=== PATIENT | female | born 1975 | race Caucasian/White ===

== ENCOUNTER → 2022-02-20 10:38 | Outpatient (BNVA) | payer SELFPAY | PROVIDERS: Family Provider Nurse Practitioner; PCP Nurse Practitioner; Visit Provider Nurse Practitioner Family | DX: R06.09 Other forms of dyspnea (principal) | CPT/HCPCS: 80053; 83540; 85025 ==

== ENCOUNTER 2022-04-24 17:52 | Emergency (ER) | payer BC, MEDICAID, SELFPAY ==
[2022-04-24 18:16] VITALS: BP 156/79; PULSE 98; RESP 28; TEMP 37.1; O2SAT 98
--- NOTE | 2022-04-24 18:24 | ECG_ITS ---
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 Measurements Intervals [place] Rate: 62 P: 40 DE: 148 QRS: -32 QRSD: 98 T: 23 QT: 434 QTc: 442 Interpretive Statements SINUS RHYTHM LEFT AXIS DEVIATION [QRS AXIS < -30] PATTERN CONSISTENT WITH PULMONARY DISEASE LEFT VENTRICULAR HYPERTROPHY AND ST-T CHANGE [VOLTAGE CRITERIA PLUS ST/T ABNORMALITY] No previous ECG available for comparison Electronically Signed On 04-25-2022 14:40:25 COATER HELPER by Austin Dixon M.D. [id number]
== END 2022-04-24 19:25 | disposition left against medical advice (07) ==
PROVIDERS: Emergency Provider Family Medicine; PCP Nurse Practitioner
DX: Z53.21 Procedure and treatment not carried out due to patient leaving prior to being seen by health care provider (principal)
CPT/HCPCS: 93005

== ENCOUNTER → 2022-05-14 13:06 | Outpatient (BNVA) | payer BC, MEDICAID, SELFPAY | PROVIDERS: PCP Nurse Practitioner; Visit Provider Nurse Practitioner | DX: I10 Essential (primary) hypertension (principal); R06.02 Shortness of breath; R60.9 Edema, unspecified | CPT/HCPCS: 71046; 80053; 80061; 83880; 84443; 85025 ==

== ENCOUNTER → 2022-05-15 10:31 | Outpatient (BNVA) | payer BC, MEDICAID, SELFPAY | PROVIDERS: PCP Nurse Practitioner; Visit Provider Nurse Practitioner | DX: R73.9 Hyperglycemia, unspecified (principal) | CPT/HCPCS: 83036 ==

== ENCOUNTER → 2022-08-15 11:08 | Outpatient (BNVA) | payer BC, MEDICAID, SELFPAY | PROVIDERS: PCP Nurse Practitioner; Visit Provider Nurse Practitioner | DX: E11.22 Type 2 diabetes mellitus with diabetic chronic kidney disease (principal); N18.2 Chronic kidney disease, stage 2 (mild); E55.9 Vitamin D deficiency, unspecified | CPT/HCPCS: 80053; 82306; 83036; 85025 ==

== ENCOUNTER → 2022-12-18 14:40 | Outpatient (BNVA) | payer BC, MEDICAID, SELFPAY | PROVIDERS: PCP Nurse Practitioner; Visit Provider Nurse Practitioner | DX: E11.22 Type 2 diabetes mellitus with diabetic chronic kidney disease (principal); N18.2 Chronic kidney disease, stage 2 (mild); E55.9 Vitamin D deficiency, unspecified | CPT/HCPCS: 80053; 80061; 82607; 83036 ==

== ENCOUNTER 2023-03-18 09:36 | Outpatient (CLI) | payer BC, MEDICAID, SELFPAY ==
--- NOTE | 2023-03-18 09:45 | USCV_ITS ---
Melanie Gruber Age: 47 Gender: F : 1975 Exam Date: 03/18/2023 09:49 Ordering Phys: Melina Norris Technologist: Cynthia Orr Exam Location: [facility] Indication: SHORTNESS OF BREATH FOR 1 YEAR BP: / HR: 63 Rhythm: Sinus Technical Quality: Adequate MEASUREMENTS (Male / Female) Normal Values 2D ECHO LV Diastolic Diameter PLAX 4.9 cm 4.2 - 5.9 / 3.9 - 5.3 cm LV Systolic Diameter PLAX 3.7 cm LV Chamber Size 2.4 cm IVS Diastolic Thickness 0.7 cm 0.6 - 1.0 / 0.6 - 0.9 cm IVS Systolic Thickness 1.2 cm LVPW Diastolic Thickness 1.2 cm 0.6 - 1.0 / 0.6 - 0.9 cm LVPW Systolic Thickness 1.4 cm RV Chamber Size 2.8 cm LVOT Diameter 2.0 cm LV Ejection Fraction 2D Teich 47.0 % LV Ejection Fraction MOD 2C 54.0 % LV Ejection Fraction 2C AL 52.8 % LA Diameter 4.1 cm LA Width 2.8 cm LA Height 4.0 cm RA Width 3.3 cm RA Height 2.3 cm Aorta at Sinotubular Diameter 3.2 cm IVC Diameter 1.4 cm M-MODE Aortic Annulus Diameter 2.9 cm LA Ao Ratio MM 1.8 MV E Point Septal Separation 0.4 cm DOPPLER AV Peak Velocity 192.7 cm/s LVOT Peak Velocity 135.0 cm/s AV Area Cont Eq vti 2.0 cm squared AV Area Cont Eq pk 2.2 cm squared MV Area PHT 2.7 cm squared Mitral E to A Ratio 1.3 MV E' Velocity 59.0 cm/s Mitral E to MV E' Ratio 7.6 Mitral E to LV E' Lateral Ratio 6.7 Mitral E to LV E' Septal Ratio 8.9 TR Peak Velocity 178.5 cm/s TR Peak Gradient 12.7 mmHg TR Mean Velocity 125.9 cm/s TR Mean Gradient 6.9 mmHg TR Velocity Time Integral 46.3 cm TV Peak E Velocity 63.0 cm/s Right Atrial Pressure 3.0 mmHg Pulmonary Artery Systolic Pressu 15.7 mmHg RV Acceleration Time 0.4 s RV Ejection Time 0.1 s RV AcT/ET 2.5 FINDINGS Left Ventricle Normal left ventricular size, systolic function and wall thickness, with no regional wall motion abnormalities. Left ventricular ejection fraction is estimated at 70%. Normal diastolic function. Right Ventricle Normal right ventricular size and systolic function. Right ventricular systolic pressure 15.7 mmHg. Right Atrium Normal right atrial size. Left Atrium Normal left atrial size. Mitral Valve Structurally normal mitral valve. No mitral valve stenosis. No mitral valve regurgitation. Aortic Valve Structurally normal trileaflet aortic valve. No aortic valve stenosis. Trace to mild aortic valve regurgitation. Tricuspid Valve Structurally normal tricuspid valve. No tricuspid valve stenosis. Trace tricuspid valve regurgitation. Pulmonic Valve Structurally normal pulmonic valve. No pulmonary valve stenosis. No significant pulmonary valve regurgitation. Pericardium No pericardial effusion. Aorta Normal size aortic root and proximal ascending aorta. IVC Normal IVC dimension with >50% respiratory change of the inferior vena cava. CONCLUSIONS 1. Normal left ventricular size, systolic function and wall thickness, with no regional wall motion abnormalities. Left ventricular ejection fraction is estimated at 70%. Normal diastolic function. 2. Normal pulmonary artery pressure. 3. Trace to mild aortic valve regurgitation. 4. No prior similar studies to compare. Francesca Hollis MD (Electronically Signed) Final Date: 23 March 2023 07:03 S
== END 2023-03-18 09:37 | disposition home or self-care (01) ==
LOC: RAD 09:37
PROVIDERS: PCP Nurse Practitioner; Visit Provider Nurse Practitioner
DX: I10 Essential (primary) hypertension (principal); R06.02 Shortness of breath
CPT/HCPCS: 93306

== ENCOUNTER → 2023-03-26 16:53 | Outpatient (BNVA) | payer BC, MEDICAID, SELFPAY | PROVIDERS: PCP Nurse Practitioner; Referring Provider Nurse Practitioner; Visit Provider Internal Medicine Pulmonary Disease | DX: F41.9 Anxiety disorder, unspecified (principal); F32.A Depression, unspecified; R06.02 Shortness of breath; M25.641 Stiffness of right hand, not elsewhere classified; M25.642 Stiffness of left hand, not elsewhere classified | CPT/HCPCS: 36415; 82785; 85025; 85651; 86003; 86140 ==

== ENCOUNTER → 2023-09-02 08:18 | Outpatient (BNVA) | payer BC, MEDICAID, SELFPAY | PROVIDERS: PCP Nurse Practitioner; Visit Provider Nurse Practitioner | DX: I10 Essential (primary) hypertension (principal); E11.22 Type 2 diabetes mellitus with diabetic chronic kidney disease; N18.2 Chronic kidney disease, stage 2 (mild); F41.9 Anxiety disorder, unspecified; F32.A Depression, unspecified; N94.6 Dysmenorrhea, unspecified; I82.401 Acute embolism and thrombosis of unspecified deep veins of right lower extremity | CPT/HCPCS: 80053; 83036; 84443; 85025 ==

== ENCOUNTER 2023-12-11 07:45 | Outpatient (CLI) | payer BC, MEDICAID, SELFPAY ==
--- NOTE | 2023-12-11 07:45 | US_ITS ---
WS: [id number] US pelv w/transvag [id number] HISTORY: N94.6 - Dysmenorrhea, unspecified COMPARISON: None available. Uterus: 11.0 cm x 5.2 cm x 4.3 cm. Enlarged anteverted uterus. There is a significantly limited evaluation of the uterus due to body hab itus. Uterus is really only visualized transabdominally. Endometrium: 1.1 cm. Incomplete evaluation of the endometrium. The endometrium is inadequately visual ized to exclude abnormality. Right ovary: 4.6 cm x 4.7 cm x 3.6 cm. Normal size and vascularity, no cystic or solid masses. Left ovary: 3.1 cm x 2.7 cm x 2.4 cm. Normal size and vascularity, no cystic or solid masses. No free fluid in the cul-de-sac. US/US pelv w/transvag [id number] IMPRESSION: 1. Nondiagnostic evaluation of the uterus and endometrium. This is due to body habitus and position of the uterus. 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 Consider follow-up MRI PARAGLIDING INSTRUCTOR pelvis wi th and without contrast. 2. Neither ovary is enlarged. No free fluid.
== END 2023-12-11 07:48 | disposition home or self-care (01) ==
PROVIDERS: PCP Nurse Practitioner; Visit Provider Nurse Practitioner
DX: N94.6 Dysmenorrhea, unspecified (principal); N85.2 Hypertrophy of uterus
CPT/HCPCS: 76830; 76856

== ENCOUNTER → 2024-03-22 10:40 | Outpatient (BNVA) | payer BC, MEDICAID, SELFPAY | PROVIDERS: PCP Nurse Practitioner; Visit Provider Nurse Practitioner | DX: E11.22 Type 2 diabetes mellitus with diabetic chronic kidney disease; N18.2 Chronic kidney disease, stage 2 (mild); E11.9 Type 2 diabetes mellitus without complications | CPT/HCPCS: 80053; 83036; 85025 ==

== ENCOUNTER → 2024-06-14 13:18 | Outpatient (BNVA) | payer BC, MEDICAID, SELFPAY | PROVIDERS: PCP Nurse Practitioner; Visit Provider Nurse Practitioner | DX: E11.22 Type 2 diabetes mellitus with diabetic chronic kidney disease (principal); N18.2 Chronic kidney disease, stage 2 (mild) | CPT/HCPCS: 80053; 83036 ==

== ENCOUNTER → 2024-12-15 13:50 | Outpatient (BNVA) | payer BC, MEDICAID, SELFPAY | PROVIDERS: PCP Nurse Practitioner; Visit Provider Nurse Practitioner | DX: E11.22 Type 2 diabetes mellitus with diabetic chronic kidney disease (principal); N18.2 Chronic kidney disease, stage 2 (mild); I10 Essential (primary) hypertension | CPT/HCPCS: 80053; 80061; 82607; 83036 ==